=== PATIENT | male | born 1945 | race Caucasian/White ===

== ENCOUNTER 2021-07-12 11:58 | Inpatient (IN) | payer OTHER ==
[~2021-07-12] VITALS: Ht 180.3 cm; Wt 112.5 kg
[2021-07-12 12:22] VITALS: BP 138/69
[2021-07-12 13:03] LABS: MEAN CELL VOLUME 83.7 fl (80.0-94.0); MEAN CORPUSCULAR HGB 28.2 pg (27.0-31.0); MEAN CORPUSCULAR HGB CONC 33.7 g/dl (33.0-37.0); MEAN PLATELET VOLUME 10.3 fl (9.6-12.3); PLATELET COUNT AUTOMATED 210 10*3/uL (130-400); RED CELL DISTRI WIDTH 13.1 % (0-14.5); WHITE BLOOD COUNT 5.2 10*3/uL (4.8-10.8)
[2021-07-12 13:11] LABS: ACT PARTIAL THROMBO TIME 26.2 SECONDS (20.0-32.1)
[2021-07-12 13:14] LABS: ALBUMIN 2.5 gm/dl (3.1-4.5); ALKALINE PHOSPHATASE 60 U/L (45-117); BUN 25 mg/dl (7-24); CHLORIDE 103 mmol/L (98-107); CPK 72 U/L (39-308); CREATININE 0.81 mg/dL (0.70-1.30); POTASSIUM 3.2 mmol/L (3.5-5.1); SGOT/AST 22 IU/L (3-35); SGPT/ALT 25 U/L (12-78); SODIUM 136 mmol/L (136-145); TOTAL PROTEIN 6.8 gm/dL (6.4-8.2)
[2021-07-12 13:32] LABS: TROPONIN I < 0.015 ng/ml (<0.045)
[2021-07-12 13:43] LABS: ATYPICAL LYMPHS 1 % (0-0); BASOPHILS 1 % (0-1); PLATELET SUFFICIENCY NORMAL (NORMAL); POLYCHROMASIA SLIGHT; TOTAL CELLS COUNTED 100 #CELLS
[2021-07-12 13:45] LABS: BILIRUBIN 1+ (Negative); BLOOD Negative (Negative); CLARITY Turbid (Clear); COLOR Dark Yellow (Yellow); GLUCOSE Negative (Negative); KETONE 1+ (Negative); LEUKO ESTERASE 3+ (Negative); NITRITE Positive (Negative); PH 7.5 (4.5-8.0); SPECIFIC GRAVITY 1.025 (1.001-1.030)
[2021-07-12 13:58] LABS: BACTERIA 4+; TRIP PHOS CRYSTALS 1+; WBC TNTC wbc/hpf (0-5)
[2021-07-12 17:51] VITALS: BP 159/77
[2021-07-12] MEDS ORDERED: LEUPROLIDE SC (19:42)
[2021-07-12 22:29] VITALS: BP 154/75
[2021-07-13 04:10] VITALS: BP 148/79
[2021-07-13 05:38] LABS: ALBUMIN 2.5 gm/dl (3.1-4.5); ALKALINE PHOSPHATASE 60 U/L (45-117); BUN 21 mg/dl (7-24); CHLORIDE 106 mmol/L (98-107); CHOLESTEROL 168 mg/dL (<200); CREATININE 0.74 mg/dL (0.70-1.30); FREE T4 1.51 ng/dl (0.76-1.46); LDL CHOLESTEROL 107 mg/dL (9-159); POTASSIUM 3.4 mmol/L (3.5-5.1); SGOT/AST 17 IU/L (3-35); SGPT/ALT 23 U/L (12-78); SODIUM 137 mmol/L (136-145); TOTAL PROTEIN 6.8 gm/dL (6.4-8.2); TRIGLYCERIDES 145 mg/dl (<150)
[2021-07-13 06:16] LABS: HEMATOCRIT 40.2 % (42.0-52.0); MEAN CELL VOLUME 85.5 fl (80.0-94.0); MEAN CORPUSCULAR HGB 28.5 pg (27.0-31.0); MEAN CORPUSCULAR HGB CONC 33.3 g/dl (33.0-37.0); MEAN PLATELET VOLUME 10.4 fl (9.6-12.3); PLATELET COUNT AUTOMATED 239 10*3/uL (130-400); WHITE BLOOD COUNT 5.7 10*3/uL (4.8-10.8)
[2021-07-13 07:05] LABS: ATYPICAL LYMPHS 3 % (0-0); TOTAL CELLS COUNTED 100 #CELLS
[2021-07-13 07:06] LABS: BURR CELLS FEW; OVALOCYTES FEW; PLATELET SUFFICIENCY NORMAL (NORMAL); POLYCHROMASIA SLIGHT
[2021-07-13 07:10] VITALS: BP 120/64; BP 134/71
[2021-07-13 12:00] VITALS: BP 154/84
[2021-07-13] MEDS ORDERED: XTANDI40 M1 PO (12:05)
[2021-07-13 16:32] VITALS: BP 140/76
[2021-07-13 18:05] VITALS: BP 145/84
[2021-07-13 20:00] VITALS: BP 148/83
[2021-07-14] VITALS: BP 139/73
[2021-07-14 08:00] VITALS: BP 152/28
[2021-07-14 12:00] VITALS: BP 144/83
[2021-07-14 16:00] VITALS: BP 144/83
[2021-07-14 19:04] LABS: BUN 20 mg/dl (7-24); CHLORIDE 107 mmol/L (98-107); CREATININE 0.81 mg/dL (0.70-1.30); POTASSIUM 3.6 mmol/L (3.5-5.1); SODIUM 138 mmol/L (136-145)
[2021-07-14 20:00] VITALS: BP 151/89
[2021-07-15] VITALS: BP 134/57
[2021-07-15 06:24] LABS: BASO % 0.3 % (0.0-1.0); EOS # 0.1 10*3/uL (0.0-0.4); EOS % 1.7 % (1.0-4.0); HEMATOCRIT 38.2 % (42.0-52.0); LYMPH % 34.6 % (27.0-41.0); MEAN CELL VOLUME 85.8 fl (80.0-94.0); MEAN CORPUSCULAR HGB 28.5 pg (27.0-31.0); MEAN CORPUSCULAR HGB CONC 33.2 g/dl (33.0-37.0); MEAN PLATELET VOLUME 10.3 fl (9.6-12.3); MONO # 0.6 10*3/uL (0.1-1.0); MONO % 10.6 % (3.0-9.0); NEUT % 51.6 % (47.0-73.0); PLATELET COUNT AUTOMATED 273 10*3/uL (130-400); RED BLOOD COUNT 4.45 10*6/uL (4.50-5.90); RED CELL DISTRI WIDTH 13.1 % (0-14.5); WHITE BLOOD COUNT 5.8 10*3/uL (4.8-10.8)
[2021-07-15 08:00] VITALS: BP 150/79
[2021-07-15 10:17] LABS: VITAMIN D, 25-HYDROXY 45.8 ng/mL (30-100)
[2021-07-15 12:00] VITALS: BP 103/74
[2021-07-15] MEDS ORDERED: DECADRON6 M1 PO (12:33)
[2021-07-15] MEDS ORDERED: CIPRO500 MG PO (12:34)
== END 2021-07-15 14:40 | disposition home health service (06) | DRG 689 ==
LOC: ED 11:58 → EDHOLD 14:31 → 4E 14:31 → EDHOLD 15:02 → 4E 07-13 16:18
PROVIDERS: Emergency Medicine; Registered Nurse; Student in an Organized Health Care Education/Training Program; ADMIT Emergency Medicine; ATTEND Emergency Medicine
DX: N30.00 Acute cystitis without hematuria (principal); E43 Unspecified severe protein-calorie malnutrition; R54 Age-related physical debility; Z20.822 Contact with and (suspected) exposure to COVID-19; C61 Malignant neoplasm of prostate; T60.3X1A Toxic effect of herbicides and fungicides, accidental (unintentional), initial encounter; R26.2 Difficulty in walking, not elsewhere classified; E11.65 Type 2 diabetes mellitus with hyperglycemia; E66.9 Obesity, unspecified; Y92.89 Other specified places as the place of occurrence of the external cause; Z68.34 Body mass index [BMI] 34.0-34.9, adult

== ENCOUNTER 2025-04-04 07:55 | Emergency (ER) | payer OTHER ==
[~2025-04-04] VITALS: Ht 208.2 cm; Wt 117.0 kg
[~2025-04-04 07:55] MED LIST: CALCIUM 600+D1 EAC4 PO; CIPRO500 MG PO; DECADRON6 M1 PO; DOXYCYCLINE HY100 M3 PO; LEUPROLIDE SC; METFORMIN HCL500 M2 PO; ROSUVASTATIN CA20 MG PO; XTANDI40 M1 PO; XTANDI80 MG PO
[2025-04-04] MEDS ORDERED: HEPARIN SODIUM 5,000 UNIT/ML VIAL IV ONE (08:20)
[2025-04-04] MEDS ORDERED: ASPIRIN ENTERIC COATED 81 MG TAB PO ONE (08:20)
[2025-04-04] MEDS ORDERED: HEPARIN SODIUM 250 ML IV SCH (08:20)
[2025-04-04] MEDS ORDERED: Ondansetron Hydrochloride 4 MG/2 ML VIAL IV ONE (08:25)
[2025-04-04 09:02] LABS: BUN 13 mg/dl (9-23); CPK 87 U/L (34-171); SGPT/ALT 22 U/L (5-49)
== END 2025-04-04 09:27 | disposition short-term general hospital (02) ==
LOC: ED 07:55
PROVIDERS: Emergency Medicine
DX: I21.3 ST elevation (STEMI) myocardial infarction of unspecified site (principal); I10 Essential (primary) hypertension; E78.5 Hyperlipidemia, unspecified; E11.9 Type 2 diabetes mellitus without complications; E66.9 Obesity, unspecified; R60.0 Localized edema; Z85.46 Personal history of malignant neoplasm of prostate; Z85.038 Personal history of other malignant neoplasm of large intestine; Z79.899 Other long term (current) drug therapy; Z79.84 Long term (current) use of oral hypoglycemic drugs; Z90.89 Acquired absence of other organs; Z98.890 Other specified postprocedural states; Z68.30 Body mass index [BMI] 30.0-30.9, adult

== ENCOUNTER 2025-06-13 11:45 | Inpatient (IN) | payer OTHER ==
[~2025-06-13] VITALS: Ht 177.8 cm; Wt 110.9 kg
[2025-06-13 11:47] VITALS: BP 142/64
[2025-06-13] MEDS ORDERED: SODIUM CHLORIDE 0.9% 1,000 ML IV ONE ×3 (12:00→16:45)
[2025-06-13 12:18] LABS: BASO # 0.0 10*3/uL (0.0-0.1); BASO % 0.3 % (0.0-1.0); EOS # 0.0 10*3/uL (0.0-0.4); EOS % 0.2 % (1.0-4.0); MEAN CELL VOLUME 89.4 fl (80.0-94.0); MEAN CORPUSCULAR HGB 28.0 pg (27.0-31.0); MEAN PLATELET VOLUME 9.5 fl (9.6-12.3); MONO # 0.5 10*3/uL (0.1-1.0); MONO % 8.4 % (3.0-9.0); NEUT # 5.1 10*3/uL (2.3-7.9); NEUT % 79.4 % (47.0-73.0); NUCLEATED RED BLOOD CELL 0.0 % (0.0-0.0); NUCLEATED RED BLOOD CELL 0.0 10*3/uL (0.0-0.0); PLATELET COUNT AUTOMATED 178 10*3/uL (130-400); RED CELL DISTRI WIDTH 15.9 % (0-14.5)
[2025-06-13 12:32] LABS: BILIRUBIN Negative (Negative); BLOOD 3+ (Negative); CLARITY Turbid (Clear); COLOR Yellow (Yellow); KETONE Trace (Negative); LEUKO ESTERASE 2+ (Negative); NITRITE Negative (Negative); PH 7.5 (4.5-8.0); SPECIFIC GRAVITY 1.020 (1.001-1.030); UROBILINOGEN 1.0 E.U./dl (0.0-1.0)
[2025-06-13 12:42] LABS: BUN 17 mg/dl (9-23)
[2025-06-13 12:47] LABS: RBC TNTC rbc/hpf (0-2); WBC TNTC wbc/hpf (0-5)
[2025-06-13] MEDS ORDERED: ACETAMINOPHEN 650 MG SUPP R PRN (15:45)
[2025-06-13] MEDS ORDERED: Acetaminophen/Hydrocodone 5 MG/325 MG TABLET PO PRN (15:45)
[2025-06-13] MEDS ORDERED: BISACODYL 10 MG SUPP R PRN (15:45)
[2025-06-13] MEDS ORDERED: BISACODYL 5 MG TAB PO PRN (15:45)
[2025-06-13] MEDS ORDERED: ACETAMINOPHEN 325 MG TAB PO PRN (15:45)
[2025-06-13] MEDS ORDERED: Ondansetron Hydrochloride 4 MG/2 ML VIAL IV PRN (15:45)
[2025-06-13] MEDS ORDERED: DEXTROSE 50% 25 GM/50 ML VIAL IV PRN (15:50)
[2025-06-13] MEDS ORDERED: INSULIN LISPRO 1 UNIT/0.01 ML SQ SCH (16:30)
[2025-06-13 18:10] VITALS: BP 139/67
[2025-06-13 20:00] VITALS: BP 132/99
[2025-06-13] MEDS ORDERED: BRILINTA90 M1 PO (20:31)
[2025-06-13] MEDS ORDERED: JARDIANCE25 MG PO (20:33)
[2025-06-13] MEDS ORDERED: HYDROCHLOROTHIA25 M1 PO (20:35)
[2025-06-13] MEDS ORDERED: TOPROL XL50 M1 PO (20:35)
[2025-06-13] MEDS ORDERED: LISINOPRIL5 MG PO (20:36)
[2025-06-13] MEDS ORDERED: TICAGRELOR 90 MG TABLET PO SCH (22:00)
[2025-06-13] MEDS ORDERED: HEPARIN SODIUM 5,000 UNIT/ML VIAL SC SCH (22:00)
[2025-06-14] VITALS: BP 152/59
[2025-06-14 06:21] LABS: BASO # 0.0 10*3/uL (0.0-0.1); BASO % 0.4 % (0.0-1.0); EOS # 0.1 10*3/uL (0.0-0.4); EOS % 1.4 % (1.0-4.0); MEAN CELL VOLUME 90.6 fl (80.0-94.0); MEAN CORPUSCULAR HGB 27.9 pg (27.0-31.0); MEAN PLATELET VOLUME 10.0 fl (9.6-12.3); MONO # 0.7 10*3/uL (0.1-1.0); MONO % 13.8 % (3.0-9.0); NEUT # 2.6 10*3/uL (2.3-7.9); NEUT % 50.9 % (47.0-73.0); NUCLEATED RED BLOOD CELL 0.0 % (0.0-0.0); NUCLEATED RED BLOOD CELL 0.0 10*3/uL (0.0-0.0); PLATELET COUNT AUTOMATED 167 10*3/uL (130-400); RED CELL DISTRI WIDTH 15.9 % (0-14.5)
[2025-06-14 06:51] LABS: BUN 16 mg/dl (9-23); FREE T4 1.39 ng/dl (0.89-1.76); LDL CHOLESTEROL 58 mg/dL (9-159)
[2025-06-14 08:00] VITALS: BP 127/66
[2025-06-14] MEDS ORDERED: METOPROLOL SUCCINATE XR 50 MG TAB PO SCH (10:00)
[2025-06-14 12:00] VITALS: BP 107/61
[2025-06-14 16:00] VITALS: BP 120/64
[2025-06-14 20:00] VITALS: BP 116/70
[2025-06-15] VITALS: BP 116/59
[2025-06-15 06:19] LABS: BASO # 0.0 10*3/uL (0.0-0.1); BASO % 0.5 % (0.0-1.0); EOS # 0.2 10*3/uL (0.0-0.4); EOS % 3.4 % (1.0-4.0); MEAN CELL VOLUME 89.4 fl (80.0-94.0); MEAN CORPUSCULAR HGB 28.0 pg (27.0-31.0); MEAN PLATELET VOLUME 10.5 fl (9.6-12.3); MONO # 0.5 10*3/uL (0.1-1.0); MONO % 10.3 % (3.0-9.0); NEUT # 2.1 10*3/uL (2.3-7.9); NEUT % 48.5 % (47.0-73.0); NUCLEATED RED BLOOD CELL 0.0 % (0.0-0.0); NUCLEATED RED BLOOD CELL 0.0 10*3/uL (0.0-0.0); PLATELET COUNT AUTOMATED 169 10*3/uL (130-400); RED CELL DISTRI WIDTH 15.9 % (0-14.5)
[2025-06-15 06:31] LABS: BUN 15 mg/dl (9-23)
[2025-06-15 08:00] VITALS: BP 135/84
[2025-06-15] MEDS ORDERED: CYANOCOBALAMIN 500 MCG TAB PO SCH (10:00)
[2025-06-15] MEDS ORDERED: LISINOPRIL 5 MG TAB PO SCH (10:00)
[2025-06-15] MEDS ORDERED: hydroCHLOROthiazide 25 MG TAB PO SCH (10:00)
[2025-06-15 12:00] VITALS: BP 102/56
[2025-06-15 16:00] VITALS: BP 98/58
[2025-06-15 20:00] VITALS: BP 110/57
[2025-06-16] VITALS: BP 126/67
[2025-06-16 08:00] VITALS: BP 149/66
[2025-06-16] MEDS ORDERED: TAMSULOSIN HCL0.4 MG PO (13:27)
[2025-06-16] MEDS ORDERED: VITAMIN B12500 MC2 PO (13:27)
[2025-06-16] MEDS ORDERED: LISINOPRIL10 M1 PO (13:28)
[2025-06-16] MEDS ORDERED: OMNICEF300 MG PO (13:28)
[2025-06-16] MEDS ORDERED: HYDROCODONE-AC1 EAC1 PO (13:29)
== END 2025-06-16 14:42 | disposition home health service (06) | DRG 640 ==
LOC: ED 11:45 → 5E 14:40 → EDHOLD 14:40 → 5E 16:08
PROVIDERS: Emergency Medicine; Student in an Organized Health Care Education/Training Program; ADMIT Internal Medicine; ATTEND Internal Medicine
DX: E86.0 Dehydration (principal); N17.0 Acute kidney failure with tubular necrosis; N30.01 Acute cystitis with hematuria; E87.20 Acidosis, unspecified; N28.9 Disorder of kidney and ureter, unspecified; E66.9 Obesity, unspecified; E11.51 Type 2 diabetes mellitus with diabetic peripheral angiopathy without gangrene; E11.65 Type 2 diabetes mellitus with hyperglycemia; N06.9 Isolated proteinuria with unspecified morphologic lesion; Z90.49 Acquired absence of other specified parts of digestive tract; Z85.46 Personal history of malignant neoplasm of prostate; Z85.51 Personal history of malignant neoplasm of bladder; Z78.9 Other specified health status; Z68.35 Body mass index [BMI] 35.0-35.9, adult; M35.00 Sjogren syndrome, unspecified

== ENCOUNTER 2025-08-27 17:10 | Observation (INO) | payer OTHER ==
[~2025-08-27] VITALS: Ht 177.8 cm; Wt 104.3 kg
[~2025-08-27 17:10] MED LIST changes: +BRILINTA90 M1 PO; +HYDROCHLOROTHIA25 M1 PO; +HYDROCODONE-AC1 EAC1 PO; +JARDIANCE25 MG PO; +LISINOPRIL10 M1 PO; +LISINOPRIL5 MG PO; +OMNICEF300 MG PO; +TAMSULOSIN HCL0.4 MG PO; +TOPROL XL50 M1 PO; +VITAMIN B12500 MC2 PO
[2025-08-27 17:15] VITALS: BP 164/62
[2025-08-27 18:18] LABS: BASO # 0.0 10*3/uL (0.0-0.1); BASO % 0.3 % (0.0-1.0); EOS # 0.1 10*3/uL (0.0-0.4); EOS % 1.2 % (1.0-4.0); MEAN CELL VOLUME 88.6 fl (80.0-94.0); MEAN CORPUSCULAR HGB 27.8 pg (27.0-31.0); MEAN PLATELET VOLUME 9.5 fl (9.6-12.3); MONO # 0.7 10*3/uL (0.1-1.0); MONO % 9.7 % (3.0-9.0); NEUT # 5.9 10*3/uL (2.3-7.9); NEUT % 77.3 % (47.0-73.0); NUCLEATED RED BLOOD CELL 0.0 % (0.0-0.0); NUCLEATED RED BLOOD CELL 0.0 10*3/uL (0.0-0.0); PLATELET COUNT AUTOMATED 264 10*3/uL (130-400); RED CELL DISTRI WIDTH 17.8 % (0-14.5)
[2025-08-27 18:38] LABS: BUN 18 mg/dl (9-23)
[2025-08-27] MEDS ORDERED: BACLOFEN5 MG PO (19:03)
[2025-08-27] MEDS ORDERED: GERI-KOT8.6 MG PO (19:05)
[2025-08-27] MEDS ORDERED: POLYETHYLENE G500 G2 PO (19:06)
[2025-08-27] MEDS ORDERED: PROTONIX40 MG PO (19:07)
[2025-08-27] MEDS ORDERED: PHENAZOPYRIDIN100 M1 PO (19:09)
[2025-08-27] MEDS ORDERED: OXYCODONE HCL5 MG PO (19:11)
[2025-08-27 21:00] LABS: BILIRUBIN 2+ (Negative); BLOOD 2+ (Negative); CLARITY Turbid (Clear); COLOR Orange (Yellow); KETONE Negative (Negative); LEUKO ESTERASE 3+ (Negative); NITRITE Positive (Negative); PH 7.5 (4.5-8.0); SPECIFIC GRAVITY 1.020 (1.001-1.030); UROBILINOGEN 1.0 E.U./dl (0.0-1.0)
[2025-08-27 21:05] VITALS: BP 137/65
[2025-08-27 21:12] LABS: RBC 31-40 rbc/hpf (0-2)
[2025-08-27 21:13] LABS: BACTERIA 3+; MUCOUS TRACE; WBC 41-50 wbc/hpf (0-5)
[2025-08-27] MEDS ORDERED: Cefepime Hydrochloride 2 GM in SODIUM CHLORIDE 0.9% 50 ML IV ONE (22:40)
[2025-08-27 23:38] VITALS: BP 128/55
[2025-08-28] VITALS (10 sets, daily range): BP systolic 110–147; BP diastolic 54–71
[2025-08-28] MEDS ORDERED: HALOPERIDOL 5 MG TAB PO ONE (00:35)
[2025-08-28] MEDS ORDERED: ACETAMINOPHEN 325 MG TAB PO ONE (01:15)
[2025-08-28] MEDS ORDERED: BISACODYL 10 MG SUPP R PRN (08:40)
[2025-08-28] MEDS ORDERED: ACETAMINOPHEN 650 MG SUPP R PRN (08:40)
[2025-08-28] MEDS ORDERED: Acetaminophen/Hydrocodone 5 MG/325 MG TABLET PO PRN (08:40)
[2025-08-28] MEDS ORDERED: BISACODYL 5 MG TAB PO PRN (08:40)
[2025-08-28] MEDS ORDERED: ACETAMINOPHEN 325 MG TAB PO PRN (08:40)
[2025-08-28] MEDS ORDERED: SODIUM CHLORIDE 0.9% 1,000 ML IV ONE (09:05)
[2025-08-28] MEDS ORDERED: ACETAMINOPHEN 100 ML IV PRN (09:55)
== END 2025-08-28 20:44 | disposition short-term general hospital (02) ==
LOC: ED 17:10 → EDHOLD 08-28 08:08
PROVIDERS: Student in an Organized Health Care Education/Training Program; ADMIT Internal Medicine; ATTEND Internal Medicine
DX: N13.30 Unspecified hydronephrosis (principal); N13.9 Obstructive and reflux uropathy, unspecified; N30.01 Acute cystitis with hematuria; K56.41 Fecal impaction; D64.9 Anemia, unspecified; E11.65 Type 2 diabetes mellitus with hyperglycemia; R80.9 Proteinuria, unspecified; Z85.46 Personal history of malignant neoplasm of prostate; Z79.899 Other long term (current) drug therapy